=== PATIENT | male | born 1975 | race Caucasian/White ===

== ENCOUNTER 2018-09-01 08:20 | Inpatient (IN) | payer OTHER ==
[~2018-09-01] VITALS: Ht 180.3 cm; Wt 107.0 kg
[2018-09-01] VITALS (51 sets, daily range): BP systolic 103–166; BP diastolic 63–100
--- NOTE | 2018-09-01 08:23 | NUR ---
CODE STEMI CALLED. SEE CODE STEMI FLOWSHEET.
[2018-09-01 08:40] LABS: ABSOLUTE LYMPHOCYTES 2.1 thou/uL (0.8-5.3); HEMOGLOBIN 16.9 gm/dL (14.0-18.0); MCH 30.3 pg (26.0-34.0); RBC 5.57 mil/uL (4.50-6.00)
[2018-09-01 08:42] LABS: ABSOLUTE BASOPHILS 0.1 thou/uL (0.0-0.2); ABSOLUTE EOSINOPHILS 0.4 thou/uL (0.0-0.7); ABSOLUTE MONOCYTES 0.5 thou/uL (0.0-1.2); ABSOLUTE NEUTROPHILS 3.6 thou/uL (1.6-8.1); BASOPHILS 1.3 %; EOSINOPHILS 6.1 %; HEMATOCRIT 49.9 % (42.0-52.0); LYMPHOCYTES 31.6 %; MCHC 33.8 g/dL (28.0-37.0); MCV 89.7 fL (80.0-100.0); MONOCYTES 6.9 %; MPV 8.7 fl. (7.2-11.1); NUCLEATED RBCS 0 /100WBC; PLATELET COUNT* 176 thou/uL (150-400); POLYS 54.1 %; RDW-CV 13.1 % (10.5-14.5); WBC 6.7 thou/uL (4.0-11.0)
[2018-09-01 08:48] LABS: CALCIUM 9.1 mg/dL (8.5-10.1); POTASSIUM 3.9 mmol/L (3.5-5.1)
[2018-09-01 08:56] LABS: TROPONIN-I LEVEL 0.22 ng/mL (<0.06)
[2018-09-01 08:59] LABS: ALBUMIN 3.7 g/dL (3.4-5.0); DIRECT BILIRUBIN 0.1 mg/dL (<0.1-0.3); TOTAL BILIRUBIN 1.1 mg/dL (<0.1-1.0); TOTAL PROTEIN 7.6 g/dL (6.4-8.2)
[2018-09-01 09:18] LABS: APTT 27.2 Seconds (25.0-31.3); INR 1.1; PROTIME 10.8 Seconds (9.20-11.50)
[2018-09-01 13:26] LABS: URINE BILIRUBIN NEGATIVE (Negative); URINE BLOOD NEGATIVE (Negative); URINE CLARITY CLEAR; URINE COLOR YELLOW; URINE GLUCOSE-RANDOM 2+ (Negative); URINE KETONES 1+ (Negative); URINE LEUKOCYTES-REFLEX NEGATIVE (Negative); URINE NITRITE-REFLEX NEGATIVE (Negative); URINE PROTEIN NEGATIVE (Negative); URINE UROBILINOGEN 0.2 E.U./dl (0.2-1.0)
--- NOTE | 2018-09-01 14:55 | CARD ---
[address] [address] CARDIAC CATH REPORT Name: HEATHER PINTO Room: [address] IN .R.#: [id number] Admission: 09/01/18 Attend Phys: Rafael Bray MD, Discharge: Date of : 71 Report #: [id number] THIS REPORT FOR: //name// APPROVED REPORT Study performed: 09/01/2018 08:24:25 Patient Details Patient Status: ED Room #: The patient is a 43 year-old male Event Personnel Doron Perez Cardroom Attendant, Allie Lindsay RN Screen Printing Machine Operator, Waqas Buck (R) Monitor, Osman Freedman Scrub, Salome Schuster RTR Scrub, Malika Adams CREDIT BALANCE SPECIALIST Monitor, Rafael Bray Cardroom Attendant Dr. Perez Procedures Performed ELAINA Place w/wo Plasty Single RCA Left Heart Cath w/or w/o Coronaries C Hemostasis w/ Angioseal Indication STEMI Risk Factors Hypercholesterolemia Admission/Lab Medications/Medications given during procedure Aspirin, Platelet Aff. Inhib., Angiomax bolus and infusion Procedure Narrative The patient was brought urgently to the Cardiac Catheterization Laboratory and was prepped and draped in a sterile manner. The right femoral was infiltrated with 2% Lidocaine subcutaneous anesthesia. A [place] 6 FR sheath was inserted into the right femoral artery. Coronary angiography was performed using coronary diagnostic catheters. The right coronary system was accessed and visualized with a Diagnostic 6Fr JR4 catheter. The left coronary system was accessed and visualized with a Diagnostic 6Fr JL4 catheter. The left ventricle was accessed and visualized with a Diagnostic 6Fr straight pigtail catheter. Left ventricular/Aortic Valve gradient assessed via catheter pullback. Closure device was deployed with a Fr Angioseal STS 6Fr. The patient tolerated the procedure well and there were no complications associated with the procedure. [place] [address] CARDIAC CATH REPORT Name: HEATHER PINTO Room: [address]#: [id number] Admission: 09/01/18 Attend Phys: Rafael Bray MD, Discharge: Date of : 71 Report #: [id number] Intraoperative Conscious Sedation Sedation start time: 847 Case end Time: 955 Fentanyl 50 mcg Versed 2 mg Fluoro Time: 11.3 minutes Dose: DAP 299174 cGycm2 3028.22 mGy Contrast Type and Amount: Visipaque 350 ml Diagnostic Cath Left Main 0% narrowing LAD 70% mid vessel stenosis Circumflex Nondominant vessel with 80% tubular narrowing of the second marginal branch Right Coronary Large dominant vessel with 100% mid vessel occlusion and prominent intraluminal thrombus at the site; later angiograms demonstrate 80% distal stenosis with 50% narrowing at the bifurcation into the posterior descending and posterolateral branches Left Ventriculography The left ventricle is normal in size with normal contractility. The left ventricular ejection fraction is estimated to be 60%. Left ventricular wall motion abnormalities are not present. There is no mitral insufficiency. Hemodynamics The aortic pressure is 140/81 mmHg with a mean of 106 mmHg. The left ventricular pressure is 128/12 mmHg with a mean of mmHg. The left ventricular end diastolic pressure is 24 mmHg. There was no gradient across the aortic valve upon pullback. PCI Technique Lesion Percutaneous coronary intervention was performed on the mid right coronary artery. The lesion stenosis prior to intervention was 100% with ELA 0 flow. A 6F JR 4.0 Guide Catheter was used to engage the ostium. A ProwaterFlex 180CM Interventional Guidewire was used to cross the lesion. BALLOON DILATION A Balloon catheter Mini Trek RX 2.0 X 12 was inserted and inflated up to 8.00atm for 18seconds. Additional Inflation: 8.00atm for 18seconds. Additional Inflation: 12.00atm for 10seconds. STENT DEPLOYMENT A drug-eluting stent [place] RX Stent 2.5X18mm [place] [address] CARDIAC CATH REPORT Name: HEATHER PINTO Room: [address] IN ..#: [id number] Admission: 09/01/18 Attend Phys: Rafael Bray MD, Discharge: Date of : 71 Report #: [id number] up to 12.00atm for 13seconds. Additional Inflation: 15.00atm for 7seconds. Additional Inflation: 16.00atm for 7seconds. Final angiography reveals 0 % stenosis with ELA 3 flow. PCI Technique Lesion 2 Percutaneous Coronary Intervention was performed on the distal right coronary artery. The lesion stenosis prior to intervention was 80% with ELA 0 flow. A 6F JR 4.0 Guide Catheter was used to engage the ostium. A ProwaterFlex 180CM Interventional Guidewire was used to cross the lesion. Stent Deployment A drug-eluting stent [place]ath[place] RX Stent 2.25X8mm was inserted and inflated up to 12.00atm for 8seconds. Additional Inflation: 12.00atm for 9seconds. Final angiography reveals 0 % stenosis with ELA 3 flow. Conclusion #[address] segment elevation inferior wall myocardial infarction #2 significant coronary artery disease characterized by the following: A 100% mid right coronary occlusion with prominent intraluminal thrombus at the site; subsequent cineangiograms demonstrated 80% distal stenosis with 50% narrowing at the bifurcation into the posterior descending and posterolateral branches B 70% mid LAD stenosis C nondominant circumflex with 80% tubular narrowing of the second marginal branch #2 moderate elevation of left ventricular end-diastolic pressure at rest #3 successful percutaneous coronary intervention with deployment of a drug-eluting stent at the site of 100% mid right coronary occlusion with 0% residual narrowing following stent deployment no residual thrombus and ELA-3 flow the distal vessel #4 successful percutaneous coronary intervention with deployment of drug-eluting stent at site of 80% distal [place] [address] CARDIAC CATH REPORT Name: HEATHER PINTO Room: [address] IN ..#: [id number] Admission: 09/01/18 Attend Phys: Rafael Bray MD, Discharge: Date of : 71 Report #: [id number] 0% residual narrowing and ELA-3 flow to the distal vessel Recommendations Cardiac Risk Reduction Program Aggressive Medical Therapy Medications Administered Aspirin (any) Prasugrel Diagnostic Cath Approved by: Doron Perez MD Date/Time: 09/01/2018 14:53:56 <ELECTRONICALLY SIGNED> By: Rafael Bray MD, FACC 09/01/18 1455 1455 1455Rafael Bray MD, FACC /INF
--- NOTE | 2018-09-01 15:30 | EKG ---
[place] [address] ELECTROCARDIOGRAM REPORT Name: HEATHER PINTO Room: [address] ADM IN .R.#: [id number] Admission: 09/01/18 Attend Phys: Rafael Bray MD, Discharge: Date of : 71 Report #: [id number] THIS REPORT FOR: //name// [facility] ED Test Date: 2018-09-01 Test Time: 08:23:43 Pat Name: HEATHER PINTO Department: Room: [facility] Gender: M Hardboard Panel Printer: TP : 1975 Requested By: Giuseppe Sykes Order Number: [id number] MD: Doron Perez Measurements Intervals [place] Rate: 62 P: 24 [place]: 143 QRS: -6 QRSD: 103 T: 123 QT: 390 QTc: 396 Interpretive Statements Sinus rhythm Inferior infarct, acute (RCA) Probable RV involvement, suggest recording right precordial leads Compared to ECG 10/05/2008 10:24:54 Myocardial infarct finding now present Sinus bradycardia no longer present Electronically Signed On 09-01-2018 15:29:53 PENOLOGY PROFESSOR by Doron Perez [email or web address] <ELECTRONICALLY SIGNED> By: Doron Perez MD, FACC 09/01/18 1529 Doron Perez MD, FACC /EPI
--- NOTE | 2018-09-01 15:31 | EKG ---
[place] [address] ELECTROCARDIOGRAM REPORT Name: HEATHER PINTO Room: [address] ADM IN .R.#: [id number] Admission: 09/01/18 Attend Phys: Rafael Bray MD, Discharge: Date of : 71 Report #: [id number] THIS REPORT FOR: //name// [facility] Test Date: 2018-09-01 Test Time: 11:13:40 Pat Name: HEATHER PINTO Department: Room: [facility] Gender: M Recreation Director: : 1975 Requested By: Doron Perez Order Number: [id number] Monico MD: Doron Perez Measurements Intervals [place] Rate: 71 P: 40 MT: 171 QRS: -23 QRSD: 103 T: 30 QT: 387 QTc: 421 Interpretive Statements Sinus rhythm Abnormal R-wave progression, early transition Left ventricular hypertrophy, bivoltage Compared to ECG 10/05/2008 10:24:54 Left ventricular hypertrophy now present Sinus bradycardia no longer present Electronically Signed On 09-01-2018 15:30:53 SALES AND SERVICE OFFICER by Doron Perez [email or web address] <ELECTRONICALLY SIGNED> By: Doron Perez MD, FACC 09/01/18 1530 1113 1113 Doron Perez MD, FAC /EPI
--- NOTE | 2018-09-01 16:46 | EKG ---
[place] [address] ELECTROCARDIOGRAM REPORT Name: HEATHER PINTO Room: [address] ADM IN M.R.#: [id number] Admission: 09/01/18 Attend Phys: Rafael Bray MD, Discharge: Date of : 71 Report #: [id number] THIS REPORT FOR: //name// [facility] Test Date: 2018-09-01 Test Time: 14:03:27 Pat Name: HEATHER PINTO Department: Room: [address] Gender: M Scarf Gluer: GABRIELA : 1975 Requested By: Rafael Bray Order Number: [id number] Monico MD: Doron Perez Measurements Intervals [place] Rate: 77 P: 37 [place]: 168 QRS: -27 QRSD: 102 T: 117 QT: 365 QTc: 414 Interpretive Statements Sinus rhythm Abnormal R-wave progression, late transition Probable LVH with secondary repol abnrm Compared to ECG 09/01/2018 11:13:40 No significant changes Electronically Signed On 09-01-2018 16:46:22 REPAIRER WELDING EQUIPMENT by Doron Perez [email or web address] <ELECTRONICALLY SIGNED> By: Doron Perez MD, FACC 09/01/18 1646 1403 1403 Doron Perez MD, FAC /EPI
--- NOTE | 2018-09-01 18:33 | NUR ---
PT ADMITTED TO ROOM 001 VIA BED FROM SENIOR FINANCIAL REPORTING ANALYST AT 1025. PT FLAT FOR 6 HOURS POST CARDIAC CATH AND HOB RAISED AT 1600. PT ASSESSMENT CHARTED. VSS. CARDIAC CATH SITE RIGHT GROIN C/D&I. CHEST PAIN REPORTED BY PATIENT X1. EKG OBTAINED AND CHEST PAIN SUBSIDED SHORTLY AFTER. DIET ADVANCED TO HEART HEALTHY WITHOUT ANY DIFFICULTIES.
--- NOTE | 2018-09-01 23:08 | NUR ---
RECIEVED REPORT AND ASSUMED CARE OF PT AT 1900. PT POST CARDIAC CATHETERIZATION WITH STENTS X2 TO RIGHT CORONARY ARTERY. PT'S RIGHT GROIN SOFT, NO BLEEDING, BRUISING OR HEMATOMA. PULSES 2+ DISTAL TO CATH SITE. RIGHT LOWER EXTREMITY PINK AND WARM. PT INSTRUCTED TO CALL NURSE IF BLEEDING OR SWELLING OCCUR AT GROIN SITE. PT'S BLOOD SUGAR 312 AT 2030. SPOKE WITH DR GIBBS AND RECIEVED ORDERS TO ADD HGB AIC TO AM LABS AND CONSULT HIMMS FOR DIABETES MANAGEMENT. DR OZUNA CONSULTED. RECIEVED ORDERS TO GIVE RGULAR INSULIN IV PUSH AND LANTUS INSULIN AT 2300.
[2018-09-02] VITALS (21 sets, daily range): BP systolic 101–132; BP diastolic 54–85
[2018-09-02 08:14] LABS: ABSOLUTE BASOPHILS 0.1 thou/uL (0.0-0.2); ABSOLUTE EOSINOPHILS 0.3 thou/uL (0.0-0.7); ABSOLUTE LYMPHOCYTES 2.1 thou/uL (0.8-5.3); ABSOLUTE MONOCYTES 0.5 thou/uL (0.0-1.2); ABSOLUTE NEUTROPHILS 3.8 thou/uL (1.6-8.1); BASOPHILS 0.8 %; EOSINOPHILS 3.8 %; HEMATOCRIT 44.9 % (42.0-52.0); LYMPHOCYTES 30.8 %; MCH 29.7 pg (26.0-34.0); MCHC 33.2 g/dL (28.0-37.0); MCV 89.5 fL (80.0-100.0); MONOCYTES 7.7 %; MPV 8.8 fl. (7.2-11.1); NUCLEATED RBCS 0 /100WBC; PLATELET COUNT* 163 thou/uL (150-400); POLYS 56.9 %; RBC 5.01 mil/uL (4.50-6.00); RDW-CV 13.2 % (10.5-14.5); WBC 6.8 thou/uL (4.0-11.0)
[2018-09-02 08:15] LABS: HEMOGLOBIN 14.9 gm/dL (14.0-18.0)
[2018-09-02 09:48] LABS: ALKALINE PHOSPHATASE 51 U/L (46-116); ANION GAP 9 mmol/L (7-16); BUN 12 mg/dL (7-18); CALCIUM 8.1 mg/dL (8.5-10.1); CHLORIDE 104 mmol/L (98-107); CHOLESTEROL 207 mg/dL (<200); CO2 24 mmol/L (21-32); CREATININE 0.8 mg/dL (0.6-1.3); GLUCOSE 278 mg/dL (70-99); HDL CHOLESTEROL 36 mg/dL (>40); LDL CHOLESTEROL 136 mg/dL (<100); POTASSIUM 4.2 mmol/L (3.5-5.1); SGOT 31 U/L (15-37); SGPT 37 U/L (30-65); SODIUM 137 mmol/L (136-145); TC:HDL 5.8 Ratio (Not establshd); TOTAL BILIRUBIN 1.5 mg/dL (<0.1-1.0); TOTAL PROTEIN 6.6 g/dL (6.4-8.2); TRIGLYCERIDE 179 mg/dL (<150); VLDL 36 mg/dL (<40)
[2018-09-02 09:49] LABS: SERUM ASSESSMENT Clear
[2018-09-02 09:50] LABS: TROPONIN-I LEVEL 5.64 ng/mL (<0.06)
--- NOTE | 2018-09-02 11:00 | NUR ---
LENGTHY DISCUSSION WITH PT AND SIGNIFICANT OTHER. PT HAS BEEN ACTIVE AND INDEP, INCLUDING WORKING. PT STATES HIS COPAYS FOR HIS MEDS SOMETIMES COST HIM $150 AT ONE TIME AND HE JUST COULDN'T AFFORD THAT. DISCUSSED OPTIONS WITH HIM, INCLUDING [facility] WE[facility], GAVE HIM PRESCRIPTION DRUG DISCOUNT CARDS. PT SAID HE HAS A GLUCOSE METER AT HOME, 'BUT IT IS REALLY OLD AND I HAVEN'T BEEN USING IT ALL.' DISCUSSED OPTIONS WITH HIM, WE CAN PROVIDE A FREE METER (ONE TOUCH) BUT THE STRIPS ARE GOING TO BE MORE EXPENSIVE, OR HE CAN GET A METER AND STRIPS CHEAPER AT [facility]. HE WILL DISCUSS FURTHER WITH HIS S.O., SHE WILL GO GET A METER AT [facility] IF THAT IS WHAT THEY DECIDE TO DO. STATISTICAL ENGINEER HERE TO INSTRUCT PT ON DIABETIC DIET. NURSING TO PROVIDE DIABETIC EDUCATION FOR PT. PT HAS BEEN SEEING DR. ACOSTA HIS PCP BUT HE SAID HE WANTS TO CHANGE PCP. WILL PROVIDE PT WITH INFO ON [facility] HE WOULD LIKE TO SEE SOMEONE IN [place]. CARDIAC REHAB TO SEE PATIENT TODAY ALSO. PT SAID HE KNOWS HE NEEDS TO DO A BETTER JOB OF TAKING CARE OF HIS HEALTH. CASE MGT WILL CONTINUE TO FOLLOW.
--- NOTE | 2018-09-02 13:21 | NUR ---
PT ASSESSMENT CHARTED. VSS THROUGHOUT THE SHIFT. CHEST PAIN X1 REPORTED A 1/10. NO INTERVENTION NEEDED. PT TRANSPORTED TO ICU BED 231 VIA WHEELCHAIR AT 1315. DIABETIC TEACHING STARTED THIS MORNING.
--- NOTE | 2018-09-02 22:36 | NUR ---
PT UP TO SHOWER THIS SHIFT. PT DENIES ANY PAIN, N/V/D, OR DIZZINESS. VSS. PT SR ON TELEMETRY. PT AR ANY FURTHER NEEDS AT THIS TIME. CLWR.
[2018-09-03] VITALS: BP 99/60
[2018-09-03 04:00] VITALS: BP 109/67
[2018-09-03 04:50] LABS: HEMATOCRIT 42.6 % (42.0-52.0); HEMOGLOBIN 14.3 gm/dL (14.0-18.0); MCH 29.6 pg (26.0-34.0); MCHC 33.6 g/dL (28.0-37.0); MCV 88.3 fL (80.0-100.0); MPV 8.7 fl. (7.2-11.1); RBC 4.82 mil/uL (4.50-6.00); RDW-CV 13.4 % (10.5-14.5); WBC 7.6 thou/uL (4.0-11.0)
[2018-09-03 04:58] LABS: CALCIUM 8.5 mg/dL (8.5-10.1); CREATININE 0.7 mg/dL (0.6-1.3); POTASSIUM 3.7 mmol/L (3.5-5.1)
--- NOTE | 2018-09-03 06:30 | NUR ---
PT HAS SLEPT WELL T/O THIS SHIFT. VSS. NO NEW CONCERNS.
[2018-09-03 07:30] VITALS: BP 113/80
--- NOTE | 2018-09-03 11:15 | NUR ---
CONTINUE TO FOLLOW, MET WITH PT AND GF. GAVE LIST OF AREA PHYSICIANS PER THEIR REQUEST. DISCUSSED DC PLAN, PT DENIES OTHER DC NEEDS. VERBALIZED HE KNOWS HE NEEDS TO MAKE LOTS OF CHANGES, ENCOURAGEMENT GIVEN. STATES HE HAS HAD SOME UPDATED DM TEACHING. NO FURTHER DC NEEDS ID'D
[2018-09-03] MEDS ORDERED: AMARYL4 MG PO (11:20)
[2018-09-03] MEDS ORDERED: GLUCOPHAGE500 MG PO (11:20)
[2018-09-03] MEDS ORDERED: LEVEMIR FL100 UNIT/2 SUBQ (11:21)
[2018-09-03 11:40] VITALS: BP 96/67
--- NOTE | 2018-09-03 11:49 | NUR ---
RECEIVED PT CARE 0700. HE IS ALERT AND ORIENTED X4. VSS. ACCOUNTS PAYABLE ACCOUNTANT TRACING SR. HE DENIES ANY SOA. O2 SAT 98% ON ROOM AIR. HE IS UP AMBULATORY IN ROOM WITH BATHROOM PRIVILEDGES. GAIT IS STEADY. AM ASSESSMENT CHARTED. MEDICATIONS GIVEN PER MAR. PLANNING FOR DC TO HOME TODAY. CALL LIGHT WITHIN REACH. WILL CONTINUE TO MONITOR.
[2018-09-03] MEDS ORDERED: EFFIENT10 MG PO (12:52)
[2018-09-03] MEDS ORDERED: ATORVASTATIN CA40 MG PO (12:52)
[2018-09-03] MEDS ORDERED: ASPIR 8181 MG PO (12:53)
[2018-09-03] MEDS ORDERED: LOPRESSOR25 PO (12:54)
--- NOTE | 2018-09-03 14:37 | NUR ---
RECEIVED DISCHARGE ORDERS PER DR PINEDO. IV DISCONTINUED X2. LOAD MANAGER REMOVED AND RETURNED TO NURSE'S DESK. EDUCATED PATIENT ON ALL NEW HOME MEDICATIONS. NEW PAPER SCRIPTS GIVEN FOR ALL MEDICATIONS PER THE FAMILY'S REQUEST. MEDICATION INFORMATION SHEETS GIVEN FOR NEW PRESCRIPTIONS. EDUCATED ON F/U APPT WITH CARDIOLOGY AND HIS PRIMARY DR. PATIENT AND HIS FIANCE VERBALIZED UNDERSTANDING AND DENIED ANY QUESTIONS OR CONCERNS AT TIME OF DISCHARGE. HE IS LEAVING VIA WHEELCHAIR ACCOMPANIED BY NURSING STAFF AND HIS FIANCE. ALL HIS BELONGINGS ARE PACKED AND LEAVING WITH THE PATIENT.
--- NOTE | 2018-09-03 16:36 | H ---
[place] [address] HISTORY AND PHYSICAL Name: HEATHER PINTO Room: [address]#: [id number] Admission: 09/01/18 Attend Phys: Rafael Bray MD, Discharge: 09/03/18 Date of : 71 Report #: [id number] THIS REPORT FOR: //name// CC: Waqas Malik Primary Physician INDICATION: Acute inferior wall myocardial infarction. HISTORY OF PRESENT ILLNESS: The patient is a 43-year-old gentleman with no prior cardiac history. His cardiac risk factors include diabetes. He has a family history of coronary artery disease. He takes no medications presently. He denies allergies. Yesterday, he started having upper left arm pain. This was somewhat exertional in character. Pain resolved. This morning, he woke up with left arm and chest pain. The patient presented to the Emergency Room for further evaluation. He was found to have ST elevation in the inferior leads. He has mild diaphoresis. He denies any nausea or vomiting. He is not having shortness of breath. He is without other cardiac complaints at this time. CURRENT MEDICATIONS: None. ALLERGIES: None. PAST SURGERIES: [place] teeth removed. PAST MEDICAL HISTORY: Diabetes. FAMILY HISTORY: The patient's father had myocardial infarction in his 40s. SOCIAL HISTORY: The patient is engaged. He does not smoke. REVIEW OF SYSTEMS: As per HPI, otherwise unremarkable. PHYSICAL EXAMINATION: VITAL SIGNS: Blood pressure 160/80, pulse is 82 and regular. GENERAL: This is a pleasant gentleman who does not appear to be in significant distress. HEENT: The patient wears glasses. Extraocular muscles intact. Mucous membranes moist. NECK: Shows no jugular venous distention. There were no carotid bruits. CHEST: Reveals clear lung diaz. CARDIAC: Reveals regular rhythm without gallop or murmur. ABDOMEN: Reveals normal bowel sounds. The abdomen is soft, nontender. EXTREMITIES: Shows no edema. Peripheral pulses 2+ and palpable. SKIN: [place] [address] HISTORY AND PHYSICAL Name: HEATHER PINTO Room: [address]#: [id number] Admission: 09/01/18 Attend Phys: Rafael Bray MD, Discharge: 09/03/18 Date of : 71 Report #: [id number] IMPRESSION AND RECOMMENDATION: 1. Acute inferior wall myocardial infarction. The patient will be taken to cardiac catheterization lab for urgent catheterization, coronary angiography and possible intervention. 2. Diabetes. We will adjust medications once labs are received. 3. Probable hyperlipidemia. We will need to start statin agent. <ELECTRONICALLY SIGNED> By: Doron Perez MD, [facility] 09/03/18 1636 0845 [id number] Heather Perez MD, FACC /nt
--- NOTE | 2018-09-08 17:36 | D ---
[address] [address] DISCHARGE SUMMARY Name: HEATHER PINTO Room: [address] IN .R.#: [id number] Admission: 09/01/18 Attend Phys: Rafael Bray MD, Discharge: 09/03/18 Date of : 71 Report #: [id number] THIS REPORT FOR: //name// CC: Waqas Bray DATE OF SERVICE: 09/03/2018 DISCHARGE DIAGNOSES: 1. Inferior wall ST elevation myocardial infarction. 2. Type 2 diabetes mellitus. PROCEDURE DURING HOSPITALIZATION: 1. Coronary angiography with left ventriculography. 2. Percutaneous coronary intervention to the mid and distal right coronary artery with drug-eluting stents placed in the mid and distal right coronary artery. HOSPITAL COURSE: The patient was admitted emergently to the hospital on 09/01/[address] elevation myocardial infarction. The patient underwent emergent catheterization that showed subtotal occlusion of the mid right coronary artery with some left to right collaterals noted. Also noted was a high grade 90% distal right coronary artery stenosis. The patient underwent emergent percutaneous coronary intervention with drug-eluting stent placed to the distal right coronary artery followed by drug-eluting stent placed to the mid right coronary artery with excellent angiographic result. The patient tolerated the procedures well and without complication. Peak troponin was 5.64. A lipid profile during hospitalization showed total cholesterol of 207, triglycerides 179, HDL 36, LDL 136. Hemoglobin A1c was ordered during this hospitalization and is pending. The patient's blood sugars remained elevated, but improved throughout hospitalization. The patient was discharged uneventfully on 09/03/2018 with followup through the Cardiology office arranged. DISCHARGE MEDICATIONS: 1. Aspirin 81 mg daily. 2. Effient 10 mg daily. 3. Metoprolol 25 mg b.i.d. 4. Atorvastatin 40 mg nightly. 5. Metformin 500 mg b.i.d. 6. ____ 2 mg daily. <ELECTRONICALLY SIGNED> By: Doron Perez MD, FACC 09/08/18 1736 1640 1658Doron Perez MD, FACC /nt
== END 2018-09-03 14:42 | disposition home or self-care (01) | DRG 246 ==
LOC: M.CL 08:20 → M.ERS 08:20 → M.TBA-CV 08:33 → M.CL 08:33 → M.ICU 09:13 → M.TBA-CV 09:13 → M.ICU 11:12 → M.2W 09-02 13:28
PROVIDERS: Family Medicine; Internal Medicine Cardiovascular Disease; ADMIT Internal Medicine
PROC: 027035Z Dilation of Coronary Artery, One Artery with Two Drug-eluting Intraluminal Devices, Percutaneous Approach (ICD-10-PCS; principal; 2018-09-01)
PROC: B215YZZ Fluoroscopy of Left Heart using Other Contrast (ICD-10-PCS; principal; 2018-09-01)
PROC: 4A023N7 Measurement of Cardiac Sampling and Pressure, Left Heart, Percutaneous Approach (ICD-10-PCS; principal; 2018-09-01)
PROC: B211YZZ Fluoroscopy of Multiple Coronary Arteries using Other Contrast (ICD-10-PCS; principal; 2018-09-01)
DX: I21.19 ST elevation (STEMI) myocardial infarction involving other coronary artery of inferior wall (principal); I50.31 Acute diastolic (congestive) heart failure; E11.9 Type 2 diabetes mellitus without complications; E78.5 Hyperlipidemia, unspecified; E78.00 Pure hypercholesterolemia, unspecified; I25.10 Atherosclerotic heart disease of native coronary artery without angina pectoris; Z82.49 Family history of ischemic heart disease and other diseases of the circulatory system; Z79.899 Other long term (current) drug therapy

== ENCOUNTER 2018-09-23 10:02 | Observation (INO) | payer OTHER ==
[~2018-09-23] VITALS: Ht 180.3 cm; Wt 113.9 kg
[2018-09-23] VITALS (14 sets, daily range): BP systolic 91–113; BP diastolic 58–75
[~2018-09-23 10:02] MED LIST: AMARYL4 MG PO; ASPIR 8181 MG PO; ATORVASTATIN CA40 MG PO; EFFIENT10 MG PO; GLUCOPHAGE500 MG PO; LEVEMIR FL100 UNIT/2 SUBQ; LOPRESSOR25 PO
[2018-09-23 11:07] LABS: HEMATOCRIT 42.6 % (42.0-52.0); HEMOGLOBIN 14.5 gm/dL (14.0-18.0); MCH 30.1 pg (26.0-34.0); MCV 88.7 fL (80.0-100.0); MPV 8.4 fl. (7.2-11.1); RBC 4.8 mil/uL (4.50-6.00); RDW-CV 13.1 % (10.5-14.5); WBC 6.5 thou/uL (4.0-11.0)
[2018-09-23 11:17] LABS: APTT 28.6 Seconds (25.0-31.3); INR 1.1; PROTIME 11.2 Seconds (9.20-11.50)
[2018-09-23 11:19] LABS: ANION GAP 12 mmol/L (7-16); BUN 9 mg/dL (7-18); CHLORIDE 103 mmol/L (98-107); CO2 25 mmol/L (21-32); CREATININE 0.8 mg/dL (0.6-1.3); GLUCOSE 129 mg/dL (70-99); POTASSIUM 3.7 mmol/L (3.5-5.1); SODIUM 140 mmol/L (136-145)
[2018-09-23] MEDS ORDERED: LISINOPRIL10 MG PO (11:23)
[2018-09-23 11:25] LABS: ALBUMIN 3.5 g/dL (3.4-5.0); ALKALINE PHOSPHATASE 54 U/L (46-116); CHOLESTEROL 116 mg/dL (<200); HDL CHOLESTEROL 42 mg/dL (>40); LDL CHOLESTEROL 58 mg/dL (<100); SGOT 24 U/L (15-37); SGPT 43 U/L (30-65); TC:HDL 2.8 Ratio (Not establshd); TOTAL BILIRUBIN 0.9 mg/dL (<0.1-1.0); TOTAL PROTEIN 7.3 g/dL (6.4-8.2); TRIGLYCERIDE 82 mg/dL (<150); VLDL 16 mg/dL (<40)
[2018-09-23 11:30] LABS: SERUM ASSESSMENT Clear
--- NOTE | 2018-09-23 14:55 | NUR ---
RECIEVIED REPORT FROM TAPAN GRIMALDO IN MANAGER QUALITY POST CATH AT 1400- PT REPORTED TO HAVE RECIEVIED 2 STENTS TO CIRCUMFLEX AND 1 STENT TO LAD, WITH ACCESS THROUGH RIGHT GROIN- PT ARRIVED TO UNIT VIA CART AT 1415- TRANSFER PER SLIDE X4 TO BED- CAB STATION ATTENDANT PLACED INDICATED, TRACING SR- VS 97.6 18 103/75 65 99% ON RA- PT A&O X4- CONTINENT OF BOWEL AND BLADDER- BED REST WITH RLE IMMOBILIZATION IN PLACE R/T POST CATH- VS IN PLACE PER PROTOCOL- RIGHT GROIN WITH GAUZE/TRANSPARENT DRESSING IN PLACE, NO VISIBALE DRAINAGE NOTED OR HEMATOMA- IV NOTED TO RIGHT HAND INTACT, IVF INFUSSING PRESCIBED- SKIN NOTED OT BE INTACT, TATOOS NOTED- WEARS GLASSES FOR SIGHT, NOTED WITH OWN TEETH- PT NOTED TO BE DIABETIC AND IS OKAY WITH HAVING BS MONITORED HERE BUT REQUEST TO EAT OWN PROVIDED MEALS AND FOR NO MEDICATIONS TO BE ADDED IN R/T DIABETES THIS HOSPITAL STAY- PT AND FIANCE REPORT TO HAVE DIABETES MANAGED WELL AT HOME WITH MEDICATIONS AND DIET- PT DENIES ANY C/O PAIN/DISCOMFORT AT THIS TIME- CALL LIGHT AND PERSONAL BELONGINGS WITH IN REACH- FREQUENT CHECKS IN PLACE R/T SAFETY/NEEDS- ZIYAD BECERRA AT BED SIDE- PT MAKES NEEDS KNOWN- ALL NEEDS MET AT THIS TIME-TM
--- NOTE | 2018-09-23 18:09 | EKG ---
[place] [address] ELECTROCARDIOGRAM REPORT Name: HEATHER PINTO Room: [address] ADM IN .R.#: [id number] Admission: 09/23/18 Attend Phys: Doron Perez MD Discharge: Date of : 71 Report #: [id number] THIS REPORT FOR: //name// [facility] Test Date: 2018-09-23 Test Time: 11:07:27 Pat Name: HEATHER PINTO Department: Room: [facility] Gender: M Deck Worker: : 1975 Requested By: Doron Perez Order Number: [id number] Monico MD: Doron Perez Measurements Intervals [place] Rate: 62 P: 27 [place]: 184 QRS: -13 QRSD: 98 T: 60 QT: 392 QTc: 398 Interpretive Statements Sinus rhythm Abnormal R-wave progression, early transition Compared to ECG 09/01/2018 14:03:27 No significant changes Electronically Signed On 09-23-2018 18:09:09 VOCATIONAL NURSING INSTRUCTOR by Doron Perez [email or web address] <ELECTRONICALLY SIGNED> By: Doron Perez MD, [facility] 09/23/18 1809 1107 1107 Doron Perez MD, FAC /EPI
[2018-09-24] VITALS: BP 102/65
--- NOTE | 2018-09-24 03:01 | NUR ---
ASSUMED PT CARE AT 1930. ASSESSMENT COMPLETED CHARTED. ABLE TO MAKE NEEDS KNOWN. PT RESTING IN BED AT THIS TIME. PT DAUGHTER IN ROOM ALL NIGHT. NO C/O PAIN OR DISCOMFORT. IV SL. WILL CONTINUE TO MONITOR.
[2018-09-24 04:00] VITALS: BP 112/71
[2018-09-24 05:14] LABS: HEMATOCRIT 40.1 % (42.0-52.0); HEMOGLOBIN 13.9 gm/dL (14.0-18.0); MCH 30.6 pg (26.0-34.0); MCHC 34.7 g/dL (28.0-37.0); MCV 88.2 fL (80.0-100.0); MPV 8.2 fl. (7.2-11.1); RBC 4.55 mil/uL (4.50-6.00); RDW-CV 13.1 % (10.5-14.5); WBC 6.9 thou/uL (4.0-11.0)
[2018-09-24 05:31] LABS: ALBUMIN 3.2 g/dL (3.4-5.0); CALCIUM 8.7 mg/dL (8.5-10.1); CREATININE 0.7 mg/dL (0.6-1.3); POTASSIUM 3.7 mmol/L (3.5-5.1); TOTAL PROTEIN 6.4 g/dL (6.4-8.2)
[2018-09-24 07:51] VITALS: BP 103/69
--- NOTE | 2018-09-24 09:12 | NUR ---
ASSUMED CARE OF PT THIS AM AROUND 0715- LAND LAW EXAMINER IN PLACE ORDERED, TRACING SR- UPON ASSESSMENT PT NOTED TO BE RESTING IN BED-PT A&O X4- CONTINENT OF BOWEL AND BLADDER- UP AD-ZARI IN ROOM, STEADY GAIT NOTED- LCTA, RESP EVEN AND UN-LABORED- VSS, O2 SAT 99% ON RA- ABDOMEN SOFT/ROUND/NON-TENDER, BS X4 QUADS- LAST BM REPORTED 09/22/18- IV NOTED TO RIGHT HAND INTACT AND SL- PROVIDED OWN MEALS WITH GOOD PO INTAKE NOTED, BS MONITORED ORDERED AND CONTROLLED PER ORAL MEDICATIONS- RIGHT GROIN SITE C/D/I WITH DRESSING IN PLACE NO VISIBLE DRAINGE OR HEMATOMA NOTED- BP NOTED TO BE 103/69 THIS AM, SCHEDULED LISINOPRIL HELD THIS AM- PT DENIES ANY C/O PAIN/DISCOMFORT AT THIS TIME- CALL LIGHT AND PERSONAL BELONGINGS WITH IN REACH- PT MAKES NEEDS KNOWN- ALL NEEDS MET AT THIS TIME-WCTM
[2018-09-24 09:52] VITALS: BP 100/63
[2018-09-24 11:24] VITALS: BP 100/63
--- NOTE | 2018-09-24 11:59 | NUR ---
ORDERS RECIEVIED THIS SHIFT PER FOR PKAY TO D/C HOME THIS SHIFT- BANDAIDE TO RIGHT GROIN SIGHT PRIOR TO D/C PER CARDIOLOGY NURSE- GROIN SIGHT EDUCATION GIVEN WITH VERBAL UNDERSTANDING RECIEVIED PER PT- IV TO RIGHT HAND D/C'D ALONG WITH COMPENSATION INTERN PRIOR TO D/C- D/C EDUCATION/TECHING GIVEN TO PT PRIOR TO D/C WITH ALL QUESTIONS AND CONCERNS ADDRESSED- WRITTEN EDUCATION PROVIDED TO PT AT TIME OF D/C- BELONGINGS PACKED AND ACCOUNTED FOR PER PT AND - PT ESCORTED WITH BELONGINGS PER TECH VIA AMBULATION TO VEHICLE; AND DAUGHTER AT SIDE AT 1200- NO PROBLEMS TO NOTE AT TIME OF D/C
--- NOTE | 2018-09-25 14:49 | EKG ---
[place] [address] ELECTROCARDIOGRAM REPORT Name: HEATHER PINTO Room: [address]#: [id number] Admission: 09/23/18 Attend Phys: Doron Perez MD Discharge: 09/24/18 Date of : 71 Report #: [id number] THIS REPORT FOR: //name// [facility] Test Date: 2018-09-24 Test Time: 04:41:40 Pat Name: HEATHER PINTO Department: Room: [facility] Gender: M Pastry Sous Chef: [id number] : 1975 Requested By: Doron Perez Order Number: [id number] Monico SPANN: Rafael Bray Measurements Intervals [place] Rate: 58 P: 30 RI: 176 QRS: 2 QRSD: 108 T: 48 QT: 423 QTc: 416 Interpretive Statements Sinus rhythm Baseline wander in lead(s) V1 Compared to ECG 09/23/2018 11:07:27 No significant changes Electronically Signed On 09-25-2018 14:49:09 FAREBOX REPAIRER by Rafael Bray [email or web address] <ELECTRONICALLY SIGNED> By: Rafael Bray MD, [facility] 09/25/18 1449 0441 0441 Rafael Bray MD, [facility] /EPI
--- NOTE | 2018-09-26 12:13 | CARD ---
[address] [address] CARDIAC CATH REPORT Name: BLAIRHEATHER Gunn Room: [address] Rehana Reis#: [id number] Admission: 09/23/18 Attend Phys: Doron Perez MD Discharge: 09/24/18 Date of : 71 Report #: [id number] THIS REPORT FOR: //name// APPROVED REPORT Study performed: 09/23/2018 11:23:19 Patient Details Patient Status: Out-Patient Room #: The patient is a 43 year-old male Event Personnel Doron Perez MD Junior Programmer Rafael Bray MD Cardiology Tammie Howe RN [employer]inery Process Technician Yolanda Musa Elena Hintermaer, RN Oil Refinery Process Technician CHAPINCITO Buck, Francisco Procedures Performed Left Heart Cath w/wo Cornaries, Placement of Drug Eluting Stent in LAD, Placement of DRug Eluting Stent in Circumflex, Hemostasis with Angioseal Indication Unstable angina Risk Factors Family History, Hypercholesterolemia, Hypertension, Diabetes Previous Procedures/Diagnoses Previous PCI, Previous CA Admission/Lab Medications/Medications given during procedure Aspirin, Platelet Aff. Inhib. Procedure Narrative The patient was brought electively to the Cardiac Catheterization Laboratory and was prepped and draped in a sterile manner. The right femoral was infiltrated with 2% Lidocaine subcutaneous anesthesia. A 6Fr. [place] sheath was inserted into the Right Femoral Artery. Coronary angiography was performed using coronary diagnostic catheters. The right coronary system was accessed and visualized with a 6fr. JR4 catheter. The left coronary system was accessed and visualized with a 6Fr JL4 catheter. Left ventricular/Aortic Valve gradient assessed via catheter pullback. Pre-demployment femoral angiogram was performed . Closure device was deployed with a 6 [place] [address] CARDIAC CATH REPORT Name: HEATHER PINTO Room: [address]#: [id number] Admission: 09/23/18 Attend Phys: Doron Perez MD Discharge: 09/24/18 Date of : 71 Report #: [id number] Angioseal. There was no hematoma. Intraoperative Conscious Sedation Sedation start time: 11:57 Case end Time: 13:06 Fluoro Time: 18.1 minutes Dose: DAP 152602 cGycm2 121 mGy Diagnostic Cath Left Main 0% narrowing LAD 30% proximal narrowing of 80% focal mid vessel stenosis Circumflex 30% mid vessel narrowing with 90% tubular distal stenosis Right Coronary Widely patent mid right coronary stent with 40% distal narrowing Hemodynamics The aortic pressure is 92/59 mmHg with a mean of 73 mmHg. The left ventricular pressure is 98/2 mmHg with a mean of mmHg. There was no gradient across the aortic valve upon pullback. PCI Technique Lesion Anticoagulation was achieved with Angiomax. Patient was preloaded with Angiomax 16ml. Percutaneous coronary intervention was performed on the Mid Left Anterior Descending Artery. The lesion stenosis prior to intervention was 80% with ELA flow. A XB 3.0 6Fr Guide Catheter was used to engage the Left ostium. A HD Fantasy Football Flex 180cm Interventional Guidewire was used to cross the lesion. STENT DEPLOYMENT A drug-eluting stent 2.5x 12 [place] was inserted and inflated up to 8atm for 12seconds. Additional Inflation: 14atm for 10seconds. Additional Inflation: 15atm for 10seconds. Final angiography reveals 0 % stenosis with ELA 3 flow. PCI Technique Lesion 2 Percutaneous Coronary Intervention was performed on the Distal Circumflex Artery. The lesion stenosis prior to intervention was 90% with ELA 3 flow. Balloon Dilation A Balloon catheter 1.5x12 RX Mini Trek was inserted and inflated up to 16atm for 15[place]. [place] [address] CARDIAC CATH REPORT Name: HEATHER PINTO Room: [address]#: [id number] Admission: 09/23/18 Attend Phys: Doron Perez MD Discharge: 09/24/18 Date of : 71 Report #: [id number] Stent Deployment A drug-eluting stent 2.0x 12 Sathish 2.0x8 was inserted and inflated up to 8atm for 7seconds. Additional Inflation: 10atm for 7seconds. Final angiography reveals 0 % stenosis with ELA 3 flow. Conclusion #1 significant multivessel coronary arteries characterized by the following: A 30% proximal LAD narrowing with 80% focal mid LAD stenosis B 30% mid circumflex narrowing with 90% tubular distal circumflex stenosis C widely patent mid right coronary stent with 40% distal narrowing #2 normal left-sided hemodynamics study #3 successful percutaneous coronary intervention with deployment of drug-eluting stent at the site of 80% mid LAD stenosis with 0% residual narrowing #5 successful percutaneous coronary intervention with deployment of sequential drug-eluting stents at the site of 90% distal circumflex stenosis with 0% residual narrowing Recommendations Cardiac Risk Reduction Program Aggressive Medical Therapy Medications Administered Aspirin (any) Prasugrel Diagnostic Cath Approved by: Doron Perez MD Date/Time: 09/26/2018 12:12:48 <ELECTRONICALLY SIGNED> By: Rafael Bray MD, [facility] 09/26/18 1213 1213 1213Rafael Bray MD, FACC /INF
--- NOTE | 2018-09-26 15:55 | D ---
[address] [address] DISCHARGE SUMMARY Name: HEATHER PINTO [address] [id number] Admission: 09/23/18 Attend Phys: Doron Perez MD Discharge: 09/24/18 Date of : 71 Report #: [id number] THIS REPORT FOR: //name// CC: Doron Marai DO DATE OF SERVICE: 09/24/2018 INDICATION: Staged percutaneous coronary intervention for underlying coronary artery disease. PROCEDURES DURING HOSPITALIZATION: 1. Percutaneous coronary intervention with stenting to the midcircumflex coronary artery. 2. Percutaneous coronary intervention to the mid left anterior descending coronary artery. HOSPITAL COURSE: The patient was admitted electively for intervention to previously identified areas of stenoses. The patient underwent percutaneous coronary intervention as outlined above uneventfully. The patient's hospital course was unremarkable. DISCHARGE MEDICATIONS: 1. Metoprolol 12.5 mg p.o. b.i.d. 2. Effient 10 mg p.o. q. day. 3. Lipitor 40 mg p.o. q. day. 4. Lisinopril 10 mg p.o. q. day. 5. Aspirin 325 mg p.o. q. day. DISPOSITION: The patient is to follow up with myself on 12/11/2018 with vascular screening. <ELECTRONICALLY SIGNED> By: Doron Perez MD, [facility] 09/26/18 1555 1131 [address] Heather Perez MD, [facility] /nt
== END 2018-09-24 12:00 | disposition home or self-care (01) ==
LOC: M.CL 10:02 → M.TBA-CV 13:10 → M.2W 13:10
PROVIDERS: ADMIT Internal Medicine Cardiovascular Disease
DX: I25.110 Atherosclerotic heart disease of native coronary artery with unstable angina pectoris (principal); E11.9 Type 2 diabetes mellitus without complications; I10 Essential (primary) hypertension; E78.00 Pure hypercholesterolemia, unspecified